=== PATIENT | female | born 1960 | race Caucasian/White ===

== ENCOUNTER 2017-03-30 11:34 | Emergency (ER) | payer OTHER ==
[~2017-03-30] VITALS: Ht 167.6 cm; Wt 68.0 kg
[~2017-03-30 11:34] MED LIST: CYCLOBENZAPRINE10 M1 PO; IBUPROFEN800 M1 PO; MOBIC7.5 M1 PO; NAPROXEN500 MG PO; PANTOPRAZOLE SO40 M1 PO; PERCOCET 5-3251 EACH PO; TYLENOL #31 TAB PO; VENTOLIN HFA18 GM INH
[2017-03-30 11:47] VITALS: BP 144/93
[2017-03-30] MEDS ORDERED: MOBIC15 M1 PO ×2 (12:31→12:57)
[2017-03-30] MEDS ORDERED: PREDNISONE5 M1 PO ×2 (12:31→12:57)
[2017-03-30] MEDS ORDERED: CYCLOBENZAPRINE10 M1 PO ×2 (12:31→12:57)
--- NOTE | 2017-03-30 12:32 | ED NECK/BACK PAIN COMPLAINT ---
History of Present Illness General Chief Complaint: Upper Extremity Problem Stated Complaint: R SHOULDER AND NECK PAIN RADIATING INTO ARM Source: patient Exam Limitations: no limitations Vital Signs & Intake/Output Vital Signs & Intake/Output Vital Signs Date Time Temp Pulse Resp B/P B/P Pulse O2 O2 Flow FiO2 Mean Ox Delivery Rate 03/30 1147 96.6 75 18 144/93 97 Room Air ED Intake and Output 03/31 0000 03/30 1200 Intake Total 0 Output Total Balance 0 Intake, Oral 0 Patient 150 lb Weight Weight Reported by Patient Measurement Method Allergies Coded Allergies: NO KNOWN ALLERGIES (07/04/11) Reconcile Medications Cyclobenzaprine HCl 10 MG TABLET 1 TAB PO TID SPASMS Meloxicam (Mobic) 15 MG TABLET 1 TAB PO DAILY PAIN Prednisone 5 MG TABLET 1 TAB PO DAILY NECK PAIN 8 TABS DAILY FOR 5 DAYS Triage Note: C/O PAIN IN BACK OF NECK X 3 DAYS, NOW STATES PAIN IS RADIATING TO R [employer] AND SHOULDER BLADE WITH FINGER NUMBNESS. DENIES INJURY OR FALL, BUT LIFTS HEAVY GRILL PARTS AT WORK. Triage Nurses Notes Reviewed? yes Onset: Abrupt Duration: day(s): (3), constant, getting worse Timing: recent history Loss of Consciousness: no loss of consciousness HPI: 57-year-old female comes into emergency room with complaints of right-sided neck pain radiating down into her right shoulder down to her right arm. Symptoms going on for the past 3. Patient reports that the pain is worse with certain movements. Some numbness and tingling associated in her fingers. Denies any recent falls or traumas. Denies any chest pain shortness of breath. Denies any other associated symptoms. (LEATHA PARIKH) Past History Travel History Traveled to [place] past 21 day No Medical History Any Pertinent Medical History? 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 No (LEATHA PARIKH) Review of Systems Review of Systems Constitutional: Reports: no symptoms. Eyes: Reports: no symptoms. Ears, Nose, Throat, Mouth: Reports: no symptoms. Respiratory: Reports: no symptoms. Cardiovascular: Reports: no symptoms. Gastrointestinal/Abdominal: Reports: no symptoms. Musculoskeletal: Reports: see HPI. Skin: Reports: no symptoms. Neurological/Psychological: Reports: no symptoms. All Other Systems: Reviewed and Negative (LEATHA PARIKH) Physical Exam Physical Exam General Appearance: well developed/nourished, mild distress Head: atraumatic Eyes: Bilateral: normal appearance. Ears, Nose, Throat, Mouth: hearing grossly normal, moist mucous membrane Neck: normal inspection, limited range of motion, paraspinous muscle tender Respiratory: no respiratory distress Cardiovascular: regular rate/rhythm Back: normal inspection Extremities: normal range of motion Neurologic/Psych: awake, alert, oriented x 3, normal mood/affect Skin: intact, normal color, warm/dry Comments: 5 out of 5 strength upper extremities, gross sensation intact, (LEATHA PARIKH) Progress Differential Diagnosis: aortic dissection, C spine injury, cauda equina syn, herniated disc, myofascial strain, pyelo/UTI, sciatica, spinal cord inj, thoracic outlet syn, T/L spine injury, ureterolithiasis, muscle strain Plan of Care: 03/30/2017 7:28:51 PM Patient clinically looks well. Nontoxic-appearing. In no apparent distress. Resting comfortably in room. Pain is consistent with muscular/cervical radiculopathy. Patient treated symptomatically. No chest pain or shortness of breath. Clinically looks well. Follow-up with primary care doctor. (LEATHA PARIKH) Departure Departure Disposition: HOME OR SELF CARE Condition: Stable Clinical Impression Primary Impression: Cervical radiculopathy Referrals: TABATHA CRAMER MD (PCP/Family) Additional Instructions: Take prednisone, flexeril, and mobic as prescribed. Follow-up with your primary care doctor. You need to obtain health insurance. Return to the emergency room if any chest pain shortness of breath or any other concerns worsening symptoms. Please go over all results of today's visit with your primary care doctor. Contact your primary care doctor to let them know you were here in the emergency room. There may be nonspecific findings which may not be related to your visit today here in the emergency room but may require further evaluation and chronic monitoring by your primary care doctor. If you had a laceration today the chance of foreign body always remains. You should follow-up with your primary care doctor for recheck in 3-5 days for a wound check. If you had an x-ray done there is a chance that a fracture could have been missed on initial read and you should follow-up with your primary care doctor for repeat x-rays if symptoms persist. If your blood pressure was elevated here in the emergency room please have rechecked by her primary care doctor within the next 48 hours by your primary care doctor. If you were prescribed a narcotic here in the emergency room or any type of controlled substances you're not allowed to drive while taking this medication or operate any type of heavy machinery. Narcotics can make you feel lightheaded dizziness nausea and can cause constipation. You may need to case picker a stool softener. Thank you for choosing [facility] emergency room. Please return to the emergency room immediately if you have any other concerns worsening of symptoms. Departure Forms: Customer Survey General Discharge Information Prescriptions: Current Visit Scripts Meloxicam (Mobic) 1 TAB PO DAILY #20 TAB Cyclobenzaprine HCl 1 TAB PO TID #20 TAB Prednisone 1 TAB PO DAILY #40 TAB 8 TABS DAILY FOR 5 DAYS (LEATHA PARIKH) PA/CYBER CRIME INVESTIGATOR Co-Sign Statement Statement: ED Attending supervision documentation- I saw and evaluated the patient. I have also reviewed all the pertinent lab results and diagnostic results. I agree with the findings and the plan of care as documented in the PA's/CYBER CRIME INVESTIGATOR's documentation. x I have reviewed the ED Record and agree with the PA's/CYBER CRIME INVESTIGATOR's documentation. [] Additions or exceptions (if any) to the PAs/CYBER CRIME INVESTIGATOR's note and plan are summarized below: [] (VAIS SEXTON,RONEY)
== END 2017-03-30 12:48 ==
LOC: ERH 11:34
DX: M54.12 Radiculopathy, cervical region (principal)

== ENCOUNTER 2017-04-07 14:39 | Emergency (ER) | payer OTHER ==
[~2017-04-07] VITALS: Ht 167.6 cm; Wt 68.0 kg
[~2017-04-07 14:39] MED LIST changes: +MOBIC15 M1 PO; +PREDNISONE5 M1 PO
[2017-04-07 14:54] VITALS: BP 142/91
--- NOTE | 2017-04-07 15:26 | ED NECK/BACK PAIN COMPLAINT ---
History of Present Illness General Chief Complaint: Shoulder Injury Stated Complaint: R SHOULDER INJURY Source: patient, old records Exam Limitations: no limitations Vital Signs & Intake/Output Vital Signs & Intake/Output Vital Signs Date Time Temp Pulse Resp B/P B/P Pulse O2 O2 Flow FiO2 Mean Ox Delivery Rate 04/07 1454 98.3 78 18 142/91 100 Nasal Cannula Allergies Coded Allergies: NO KNOWN ALLERGIES (07/04/11) Reconcile Medications Cyclobenzaprine HCl 10 MG TABLET 1 TAB PO QPM PRN SPASM DO NOT DRIVE WITH THIS MEDICATION Cyclobenzaprine HCl 10 MG TABLET 1 TAB PO TID SPASMS Meloxicam (Mobic) 15 MG TABLET 1 TAB PO DAILY PAIN Meloxicam (Mobic) 15 MG TABLET 1 TAB PO DAILY PAIN Prednisone 5 MG TABLET 1 TAB PO DAILY NECK PAIN 8 TABS DAILY FOR 5 DAYS Triage Note: C/O PAIN IN NECK RADIATING TO R ARM X 2 WEEKS, SEEN HERE LAST WEEK FOR THE SAME. PUT ON PREDNISONE, MOBIC AND A MUSCLE RELAXER. PAIN IS WORSE NOW. Triage Nurses Notes Reviewed? yes Onset: Gradual Duration: week(s): (FEW) Timing: recent history Location: C-spine Radiation: RIGHT SHOULDER, ARM, Loss of Consciousness: prolonged (minutes) Modifying Factors: pain medication Associated Symptoms: NUMBNESS, TINGLING HPI: This is a 57 showed female seen here in the ER last week for neck pain and diagnosed with a pinched nerve. She states she was having pain in her shoulder. She was put on prednisone as well as 2 other medications which she has been taking. Today she comes in because she is having worsening pain in her right shoulder. Pain now travels down to the elbow and she has numbness and tingling that travels down to the fingers. Denies any weakness in the hand. No headaches. She states that she has no insurance and cannot longer see her primary care doctor. Past History Travel History Traveled to [place] past 21 day No Medical History Any Pertinent Medical History? 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 No Review of Systems Review of Systems Constitutional: Denies: chills, fever, malaise, weakness. Eyes: Reports: no symptoms. Ears, Nose, Throat, Mouth: Reports: no symptoms. Respiratory: Denies: cough, short of breath, sputum production. Cardiovascular: Denies: chest pain. Gastrointestinal/Abdominal: Reports: no symptoms. Musculoskeletal: Reports: joint pain, muscle pain. Skin: Reports: no symptoms. Neurological/Psychological: Reports: ataxia, numbness, tingling. Denies: weakness. All Other Systems: Reviewed and Negative Physical Exam Physical Exam General Appearance: well developed/nourished, alert, awake, anxious, mild distress Head: atraumatic Eyes: Bilateral: PERRL, EOMI. Ears, Nose, Throat, Mouth: hearing grossly normal Neck: normal inspection, supple, full range of motion Respiratory: normal breath sounds Cardiovascular: regular rate/rhythm Peripheral Pulses: 2+ radial (R), 2+ radial (L) Gastrointestinal: soft, non-tender Back: normal inspection Extremities: normal range of motion, pain with range of motion right shoulder Numbness and tingling right upper extremity 5/5 strength, normal reflexes, normal pulse Neurologic/Psych: awake, alert, oriented x 3, normal mood/affect Skin: intact, normal color, warm/dry Progress Differential Diagnosis: herniated disc, myofascial strain, shoulder sprain, rotator cuff injury, NERVE IMPINGEMENT, CERVICAL RADICULOPATHY Plan of Care: Orders Procedure Date/time Status CT CERV SPINE WO IV CONTRAST 04/07 152 Active Current Medications Sig/Donnell Start time Last Medication Dose Stop Time Status Admin Ketorolac 30 MG ONE ONE 04/07 1530 UNVr Tromethamine 04/07 1531 (Toradol) Diagnostic Imaging: Viewed by Me: CT Scan. Discussed w/RAD: CT Scan. Radiology Impression: PATIENT: CHELSI ANSARI PRESENT AGE: 57 PATIENT ACCOUNT NO: [id number] : 61 LOCATION: [facility] ORDERING PHYSICIAN: SHWETA CANTU MD SERVICE DATE: 04/07/17-1525 EXAM TYPE: CAT - CT CERV SPINE WO IV CONTRAST EXAMINATION: CT CERVICAL SPINE WITHOUT CONTRAST CLINICAL INFORMATION: Right shoulder pain. Right arm pain and numbness. Rule out disc herniation. COMPARISON: None TECHNIQUE: Multidetector volumetric imaging of the cervical spine is performed without IV contrast. Coronal and sagittal reformatted images were performed and reviewed. DLP: 297 mGy-cm FINDINGS: No acute fracture or subluxation. Vertebral bodies and posterior elements are anatomically aligned. Vertebral body heights are maintained. Mild disc space narrowing at C4-C5 and C6-C7. Multilevel facet arthropathy. No prevertebral soft tissue swelling. The atlantoaxial and atlantooccipital articulations are intact. The lung apices are clear. The thyroid gland is unremarkable. SPINAL LEVELS: C2-C3: No significant disc bulge. No spinal canal or neuroforaminal narrowing. C3-C4: No significant disc bulge. No spinal canal or neuroforaminal narrowing. C4-C5: No significant disc bulge. No spinal canal narrowing. Mild bony neuroforaminal narrowing associated with facet arthropathy.. C5-C6: No significant disc bulge. No spinal canal narrowing. There is mild right neural foraminal narrowing associated with facet arthropathy. C6- C7: No significant disc bulge. No spinal canal or neuroforaminal narrowing. C7- T1: No significant disc bulge. No spinal canal or neuroforaminal narrowing. IMPRESSION: Mild right neuroforaminal narrowing at C4-C5 and C5-C6 associated with prominent facet arthropathy. No significant disc bulge visualized. MRI is more sensitive to evaluate the levels. DICTATED BY: YAN ROSE MD DATE/ TIME DICTATED:04/07/171610 BILINGUAL SALES REPRESENTATIVE:JH DATE/TIME TRANSCRIBED: 04/07/171610 CONFIDENTIAL, DO NOT COPY WITHOUT APPROPRIATE AUTHORIZATION. < Electronically signed in Other Vendor System> SIGNED BY: YAN ROSE MD 04/07/171619 Departure Departure Time of Disposition: 042 Disposition: HOME OR SELF CARE Condition: Stable Clinical Impression Primary Impression: Cervical radiculopathy Referrals: TABATHA CRAMER MD (PCP/Family) Additional Instructions: Continue the prescribed medications were given to you. Please follow up with your primary care doctor in the office. Return as needed. Departure Forms: Customer Survey General Discharge Information Prescriptions: Current Visit Scripts Meloxicam (Mobic) 1 TAB PO DAILY #30 TAB Cyclobenzaprine HCl 1 TAB PO QPM PRN SPASM #[address] WITH THIS MEDICATION PA/OFFSET PLATE MAKER Co-Sign Statement Statement: ED Attending supervision documentation- [] I saw and evaluated the patient. I have also reviewed all the pertinent lab results and diagnostic results. I agree with the findings and the plan of care as documented in the PA's/OFFSET PLATE MAKER's documentation. [] I have reviewed the ED Record and agree with the PA's/OFFSET PLATE MAKER's documentation. [] Additions or exceptions (if any) to the PAs/OFFSET PLATE MAKER's note and plan are summarized below: []
--- NOTE | 2017-04-07 16:20 | CT SCAN REPORT ---
EXAMINATION: CT CERVICAL SPINE WITHOUT CONTRAST CLINICAL INFORMATION: Right shoulder pain. Right arm pain and numbness. Rule out disc herniation. COMPARISON: None TECHNIQUE: Multidetector volumetric imaging of the cervical spine is performed without IV contrast. Coronal and sagittal reformatted images were performed and reviewed. DLP: 297 mGy-cm FINDINGS: No acute fracture or subluxation. Vertebral bodies and posterior elements are anatomically aligned. Vertebral body heights are maintained. Mild disc space narrowing at C4-C5 and C6-C7. Multilevel facet arthropathy. No prevertebral soft tissue swelling. The atlantoaxial and atlantooccipital articulations are intact. The lung apices are clear. The thyroid gland is unremarkable. SPINAL LEVELS: C2-C3: No significant disc bulge. No spinal canal or neuroforaminal narrowing. C3-C4: No significant disc bulge. No spinal canal or neuroforaminal narrowing. C4-C5: No significant disc bulge. No spinal canal narrowing. Mild bony neuroforaminal narrowing associated with facet arthropathy.. C5-C6: No significant disc bulge. No spinal canal narrowing. There is mild right neural foraminal narrowing associated with facet arthropathy. C6-C7: No significant disc bulge. No spinal canal or neuroforaminal narrowing. C7-T1: No significant disc bulge. No spinal canal or neuroforaminal narrowing. IMPRESSION: Mild right neuroforaminal narrowing at C4-C5 and C5-C6 associated with prominent facet arthropathy. No significant disc bulge visualized. MRI is more sensitive to evaluate the levels.
[2017-04-07] MEDS ORDERED: MOBIC15 M1 PO (16:29)
[2017-04-07] MEDS ORDERED: CYCLOBENZAPRINE10 M1 PO (16:29)
== END 2017-04-07 16:23 ==
LOC: ERH 14:39
DX: M54.12 Radiculopathy, cervical region (principal)
CPT/HCPCS: 96372; J1885